=== PATIENT | male | born 1965 | race Hispanic/Latino ===

== ENCOUNTER 2019-04-09 12:29 | Emergency (ER) | payer OTHER ==
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
[2019-04-09] MEDS ORDERED: TETANUS & DIPHTHERIA TOX,ADULT 0.5 ML VIAL ONE (13:38)
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
[2019-04-09] MEDS ORDERED: TRAMADOL HCL 50 MG TAB ONE (14:56)
[2019-04-09 17:11] VITALS: TEMP 98.2; O2SAT 100
[2019-04-09 17:13] VITALS: BP 127/61
== END 2019-04-09 16:51 | disposition home or self-care (01) ==
LOC: ER 12:29
PROC: 0JQ00ZZ Repair Scalp Subcutaneous Tissue and Fascia, Open Approach (ICD-10-PCS; principal; 2019-04-09)
DX: S01.01XA Laceration without foreign body of scalp, initial encounter (principal); Y04.2XXA Assault by strike against or bumped into by another person, initial encounter; Y93.9 Activity, unspecified; Y92.149 Unspecified place in prison as the place of occurrence of the external cause; Z23 Encounter for immunization
CPT/HCPCS: 70450; 72125; 90714; 99284